=== PATIENT | male | born 1975 | race Hispanic/Latino ===

== ENCOUNTER → 2017-05-03 | Day surgery (SDC) | payer OTHER, SELFPAY ==
[~2017-05-03] MED LIST: ALLEGRA ALLERGY60 MG PO; BUPIVACAINE HCL 0.5% INJ 30 ML VIAL INJ ONE; CEFAZOLIN SOD 1 GM VIAL ONE; DEXAMETHASONE SOD PHOS INJ 4 MG/ML VIAL ONE; FENTANYL CITRATE/PF 100MCG/2 ML INJ ONE; LIDOCAINE 2% /EPINEPHRINE 20 ML SDV INJ ONE; LIDOCAINE HCL 2% LOCAL INJ 5 ML SDV VIAL INJ ONE; MIDAZOLAM HCL 2 MG/2 ML VIAL ONE; ONDANSETRON HCL INJ 2 MG/ML VIAL ONE; PROPOFOL IV EMULSION 10 MG/ML 20 ML VIAL ONE; SEVOFLURANE INHAL SOLN 250 ML PEN BTL ONE
--- NOTE | 2017-05-03 13:34 | Operative Report ---
DATE OF PROCEDURE: May 03, 2017 LINING MACHINE TENDER: Jermain Hall PA-C The patient was brought to the operating room for induction of anesthesia. Throughout this case, my PA's assistance was necessary for retraction of soft tissue and positioning of the extremity. This allows for efficient and technically successful execution of the operation and is considered medically necessary. PREOPERATIVE DIAGNOSIS: Laceration with foreign body, right thigh. POSTOPERATIVE DIAGNOSIS: Laceration with foreign body, right thigh. PROCEDURE: Removal of foreign body, right thigh. INDICATIONS: The patient is a 41-year-old gentleman who has a small tyrone of metal in his soft tissue in his right thigh. This occurred at work. The work supervisor tank house and the patient went to have this removed. The risks and benefits and challenges of removing something so small were explained. They state they understand and wish to proceed. DESCRIPTION OF PROCEDURE: The patient was brought to the operating room. His right lower extremity was prepped and draped in a sterile manner. A preoperative time out was performed. The eschar over the previous laceration/incision was removed and the wound was opened up. A C-arm image intensifier was used to assist in localizing the tyrone of metal. The incision had to be extended about 0.5 cm posteriorly. Multiple attempts were necessary to localize this small piece of metal. This was ultimately removed. The wound was thoroughly irrigated. This was loosely approximated with 4-0 nylon stitches. The area was infiltrated with 2% lidocaine with epinephrine. Blood loss was less than 10 mL. All needle and sponge counts were correct. The foreign body was sent to pathology. Job#: [id number]
== END | disposition home or self-care (01) ==
LOC: OR 10:10
PROVIDERS: ATTEND Specialist
DX: S71.121A Laceration with foreign body, right thigh, initial encounter (principal); W22.8XXA Striking against or struck by other objects, initial encounter; W45.8XXA Other foreign body or object entering through skin, initial encounter; Y92.89 Other specified places as the place of occurrence of the external cause
CPT/HCPCS: 20103; 76000; 88300; 93005; J0690; J1100; J2001 ×2; J2250; J2405